=== PATIENT | male | born 1970 | race Caucasian/White ===

== ENCOUNTER → 2016-11-18 | Outpatient (CLI) | payer OTHER ==
[~2016-11-18] MED LIST: AEROCHAMBER1 DEV IH; ALBUTEROL2 PUFFS/17 IN; AMOXICILLIN 50500 MG PO; AMOXIL500 MG PO; ANTIVERT/2525 MG PO; BACTRIM DS 8001 TA1 PO; CIPRO 500MG TA500 MG PO; CITALOPRAM20 MG PO; DICYCLOMINE HCL20 MG PO; ETODOLAC400 MG PO; HYDROXYZINE PAM25 MG PO; IBU-8800 MG PO; KEFLEX 500MG.500 MG PO; LEVOFLOXACIN500 MG PO; LISINOPRIL 20MG20 MG PO; LISINOPRIL/HCTZ1 TAB PO; MEDROL 4MG. DOSE4 MG PO; MOBIC7.5 MG PO; PANTOPRAZOLE SO40 MG PO; PHENERGAN VC +120 ML PO; PROMETHAZINE HC25 M1 PO; PYRIDIUM200 M1 PO; RANITIDINE150 M1 PO; STERAPRED DS10 MG PO; VICODIN 5/500 T1 TAB PO; ZITHROMAX Z-PA250 M1 PO
== END ==
LOC: RT 07:55
DX: R07.9 Chest pain, unspecified (principal); E11.9 Type 2 diabetes mellitus without complications; I10 Essential (primary) hypertension; R94.31 Abnormal electrocardiogram [ECG] [EKG]; K21.9 Gastro-esophageal reflux disease without esophagitis; Z82.49 Family history of ischemic heart disease and other diseases of the circulatory system

== ENCOUNTER → 2017-04-19 | Outpatient (CLI) | payer OTHER | LOC: LAB 11:22 | DX: R07.9 Chest pain, unspecified (principal) ==